=== PATIENT | female | born 1985 | race African-American/Black ===

== ENCOUNTER 2018-06-24 05:18 | Emergency (ER) | payer OTHER ==
[~2018-06-24] VITALS: Ht 170.2 cm; Wt 117.0 kg
[2018-06-24] MEDS ORDERED: IBUPROFEN 600MG TABLET PO ONE (07:00)
[2018-06-24 07:46] VITALS: BP 128/71
== END 2018-06-24 07:49 | disposition home or self-care (01) ==
LOC: ER 05:18
DX: H92.02 Otalgia, left ear (principal); F12.10 Cannabis abuse, uncomplicated
CPT/HCPCS: 99283; Z7610

== ENCOUNTER 2018-12-13 13:49 | Emergency (ER) | payer MEDICAID, OTHER ==
[~2018-12-13] VITALS: Ht 167.6 cm; Wt 80.0 kg
[2018-12-13 14:48] LABS: BASOPHILS % 1.4 % (0.0-2.0); EOSINOPHILS % 1.9 % (0.0-5.0); HEMATOCRIT. 38.9 % (36.0-48.0); HEMOGLOBIN. 12.5 g/dL (12.0-16.0); LYMPHOCYTES % 34.4 % (20.0-50.0); MEAN CORPUSCULAR VOLUME 74.7 fL (81.0-99.0); MEAN PLATELET VOLUME 8.4 fl (7.4-10.4); NEUTROPHILS % 55.3 % (40.0-76.0); PLATELET 174 x1000/uL (130-400); RED BLOOD CELL COUNT 5.21 mill/uL (4.2-5.4); RED CELL DISTRIBUTION WIDTH 16.9 % (11.6-14.6)
[2018-12-13 14:56] LABS: CHLORIDE 105 mEq/L (98-107)
[2018-12-13 15:00] LABS: ETHANOL BLOOD < 10 mg/dL
[2018-12-13 15:53] LABS: CLARITY URINE CLEAR (CLEAR); COLOR URINE YELLOW (YELLOW); KETONES URINE NEGATIVE (NEGATIVE); LEUKOCYTE ESTERASE URINE NEGATIVE (NEGATIVE); NITRITE URINE NEGATIVE (NEGATIVE); OCCULT BLOOD URINE NEGATIVE (NEGATIVE); PH URINE 5.5 (4.5-8.0); PROTEIN URINE NEGATIVE (NEGATIVE); SPECIFIC GRAVITY URINE 1.028 (1.005-1.030)
[2018-12-13] MEDS ORDERED: IBUPROFEN 600MG TABLET PO STA (15:55)
[2018-12-13 16:08] LABS: *BARBITURATES SCREEN URINE NEGATIVE (NEGATIVE); *COCAINE SCREEN URINE NEGATIVE (NEGATIVE)
[2018-12-13 16:09] LABS: *BENZODIAZEPINES SCREEN URINE NEGATIVE (NEGATIVE); CANNABINOID URINE SCREEN NEGATIVE (NEGATIVE); METHADONE URINE SCREEN NEGATIVE (NEGATIVE); OPIATES URINE SCREEN NEGATIVE (NEGATIVE)
[2018-12-13 16:13] LABS: *AMPHETAMINES SCREEN URINE PRESUMTIVE POSITIVE (NEGATIVE); PHENCYCLIDINE URINE SCREEN PRESUMTIVE POSITIVE (NEGATIVE)
[2018-12-13 16:43] VITALS: BP 132/84
== END 2018-12-13 16:20 | disposition home or self-care (01) ==
LOC: ER 13:49
DX: R44.0 Auditory hallucinations (principal); R07.89 Other chest pain; F20.9 Schizophrenia, unspecified; F12.10 Cannabis abuse, uncomplicated
CPT/HCPCS: 36415; 71045; 80305; 80307; 80320; 80329; 81003; 81025; 99284; G0480

== ENCOUNTER 2019-08-05 02:37 | Emergency (ER) | payer MEDICAID, OTHER ==
[~2019-08-05] VITALS: Ht 170.2 cm; Wt 104.5 kg
[2019-08-05 04:50] LABS: BASOPHILS % 0.3 % (0.0-2.0); EOSINOPHILS % 0.1 % (0.0-5.0); HEMATOCRIT. 32.4 % (36.0-48.0); HEMOGLOBIN. 9.9 g/dL (12.0-16.0); LYMPHOCYTES % 8.5 % (20.0-50.0); MEAN CORPUSCULAR HEMOGLOBIN 21.4 pg (28.0-32.0); MEAN CORPUSCULAR VOLUME 70.1 fL (81.0-99.0); MEAN PLATELET VOLUME 8.4 fl (7.4-10.4); MONOCYTES % 6.3 % (2.0-8.0); NEUTROPHILS % 84.8 % (40.0-76.0); PLATELET 382 x1000/uL (130-400); RED BLOOD CELL COUNT 4.63 mill/uL (4.2-5.4); RED CELL DISTRIBUTION WIDTH 23.9 % (11.6-14.6)
[2019-08-05 04:54] LABS: CHLORIDE 101 mEq/L (98-107)
[2019-08-05 04:57] LABS: ETHANOL BLOOD < 10 mg/dL
[2019-08-05 05:24] LABS: PLATELET ESTIMATE NORMAL
[2019-08-05] MEDS ORDERED: IBUPROFEN 600MG TABLET PO STA (05:31)
[2019-08-05 05:41] LABS: CLARITY URINE CLOUDY (CLEAR); COLOR URINE DARK YELLOW (YELLOW); KETONES URINE NEGATIVE (NEGATIVE); LEUKOCYTE ESTERASE URINE NEGATIVE (NEGATIVE); NITRITE URINE NEGATIVE (NEGATIVE); OCCULT BLOOD URINE NEGATIVE (NEGATIVE); PROTEIN URINE TRACE (NEGATIVE); SPECIFIC GRAVITY URINE 1.034 (1.005-1.030)
[2019-08-05 05:56] LABS: *BARBITURATES SCREEN URINE NEGATIVE (NEGATIVE); *BENZODIAZEPINES SCREEN URINE NEGATIVE (NEGATIVE); *COCAINE SCREEN URINE NEGATIVE (NEGATIVE); METHADONE URINE SCREEN NEGATIVE (NEGATIVE); OPIATES URINE SCREEN NEGATIVE (NEGATIVE)
[2019-08-05 05:57] LABS: PHENCYCLIDINE URINE SCREEN NEGATIVE (NEGATIVE)
[2019-08-05 06:10] LABS: *AMPHETAMINES SCREEN URINE PRESUMTIVE POSITIVE (NEGATIVE); CANNABINOID URINE SCREEN PRESUMTIVE POSITIVE (NEGATIVE)
[2019-08-05 10:00] VITALS: BP 102/72
== END 2019-08-05 10:45 | disposition home or self-care (01) ==
LOC: ER 02:37
DX: R10.9 Unspecified abdominal pain (principal); F15.10 Other stimulant abuse, uncomplicated; F16.10 Hallucinogen abuse, uncomplicated; F12.10 Cannabis abuse, uncomplicated; Z75.1 Person awaiting admission to adequate facility elsewhere; Z59.0 Homelessness
CPT/HCPCS: 36415; 80048; 80305; 80307; 80320; 80329; 81003; 81025; 85025; 99283; G0480

== ENCOUNTER 2019-08-25 16:22 | Inpatient (IN) | payer MEDICAID, OTHER ==
[~2019-08-25] VITALS: Ht 170.2 cm; Wt 98.5 kg
[2019-08-25] MEDS ORDERED: DIPH25CA83 PO (16:28)
[2019-08-25 18:42] LABS: CHLORIDE 98 mEq/L (98-107)
[2019-08-25 18:44] LABS: MEAN CORPUSCULAR HEMOGLOBIN 20.7 pg (28.0-32.0); MEAN CORPUSCULAR VOLUME 64.2 fL (81.0-99.0); MEAN PLATELET VOLUME 9.3 fl (7.4-10.4); PLATELET 244 x1000/uL (130-400); RED BLOOD CELL COUNT 3.27 mill/uL (4.2-5.4); RED CELL DISTRIBUTION WIDTH 23.8 % (11.6-14.6)
[2019-08-25 18:46] LABS: ETHANOL BLOOD < 10 mg/dL
[2019-08-25 18:48] LABS: CLARITY URINE CLOUDY (CLEAR); COLOR URINE DARK YELLOW (YELLOW); KETONES URINE TRACE (NEGATIVE); LEUKOCYTE ESTERASE URINE 2+ (NEGATIVE); NITRITE URINE NEGATIVE (NEGATIVE); OCCULT BLOOD URINE NEGATIVE (NEGATIVE); PH URINE 5.5 (4.5-8.0); PROTEIN URINE 2+ (NEGATIVE)
[2019-08-25 18:50] LABS: HEMOGLOBIN. 6.8 g/dL (12.0-16.0)
[2019-08-25 19:06] LABS: *BARBITURATES SCREEN URINE NEGATIVE (NEGATIVE)
[2019-08-25 19:07] LABS: *BENZODIAZEPINES SCREEN URINE NEGATIVE (NEGATIVE); *COCAINE SCREEN URINE NEGATIVE (NEGATIVE); CANNABINOID URINE SCREEN NEGATIVE (NEGATIVE); METHADONE URINE SCREEN NEGATIVE (NEGATIVE); OPIATES URINE SCREEN NEGATIVE (NEGATIVE); PHENCYCLIDINE URINE SCREEN NEGATIVE (NEGATIVE)
[2019-08-25 19:11] LABS: *AMPHETAMINES SCREEN URINE PRESUMTIVE POSITIVE (NEGATIVE)
[2019-08-25] MEDS ORDERED: AZITHROMYCIN 500 MG in DEXT 5% WATER 250 ML IV SCH (20:00)
[2019-08-25] MEDS ORDERED: POTASSIUM CHLORIDE 20MEQ TABLET SR PO NR (20:00)
[2019-08-25] MEDS ORDERED: CEFTRIAXONE 1 G PREMIX 50 ML IV ONE (21:00)
[2019-08-25 21:01] LABS: PLATELET ESTIMATE NORMAL
[2019-08-25] MEDS ORDERED: ACETAMINOPHEN 325MG TABLET PO PRN (23:45)
[2019-08-26 03:30] VITALS: BP 110/63
[2019-08-26] MEDS ORDERED: ONDANSETRON HCL 4MG/2ML INJ IV PRN (04:00)
[2019-08-26 08:00] VITALS: BP 105/61
[2019-08-26] MEDS: MORPHINE SULFATE 2 MG/ML CPJ (NOT FOR IM USE) IV PRN ×2 (08:06→17:48)
[2019-08-26 09:42] LABS: INR 1.3; PROTHROMBIN TIME 14.1 sec (9.6-11.0)
[2019-08-26 09:44] LABS: HEMATOCRIT. 23.5 % (36.0-48.0); HEMOGLOBIN. 7.5 g/dL (12.0-16.0); MEAN CORPUSCULAR HEMOGLOBIN 21.3 pg (28.0-32.0); MEAN CORPUSCULAR VOLUME 67.4 fL (81.0-99.0); MEAN PLATELET VOLUME 9.2 fl (7.4-10.4); RED BLOOD CELL COUNT 3.49 mill/uL (4.2-5.4); RED CELL DISTRIBUTION WIDTH 24.2 % (11.6-14.6)
[2019-08-26 09:52] LABS: PLATELET 204 x1000/uL (130-400)
[2019-08-26 11:29] LABS: ATYPICAL LYMPHOCYTES 1; PLATELET ESTIMATE NORMAL
[2019-08-26 16:00] VITALS: BP 123/64
[2019-08-26] MEDS ORDERED: VANCOMYCIN 2,000 MG in DEXT 5% WATER 500 ML IV NR (16:00)
[2019-08-26] MEDS: AZITHROMYCIN 500 MG TABLET PO SCH (17:48)
[2019-08-26 20:00] VITALS: BP 98/46
[2019-08-26] MEDS ORDERED: LORAZEPAM 2MG/ML CPJ IV PRN (20:30)
[2019-08-26] MEDS: SODIUM HYPOCHLORITE 0.125% 473ML SOLUTION TOP SCH (20:32)
[2019-08-26] MEDS ORDERED: CEFTRIAXONE 1 G PREMIX 50 ML IV SCH ×2 (21:00)
[2019-08-26] MEDS ORDERED: SODIUM CHLORIDE 0.9% 500 ML IV NR (21:19)
[2019-08-26] MEDS: ACETAMINOPHEN 325MG TABLET PO PRN (21:59)
[2019-08-26] MEDS ORDERED: VANCOMYCIN 1250MG in DEXTROSE 5% WATER 250ML IV SCH (22:00)
[2019-08-26 22:15] LABS: TOTAL IRON BINDING CAPACITY 139 ug/dL (250-450)
[2019-08-26 22:51] LABS: HEPATITIS B SURFACE ANTIGEN NEGATIVE
[2019-08-26] MEDS: DEXT 5%/0.45% NACL 1000ML 1,000 ML IV SCH (22:51)
[2019-08-26 23:21] LABS: HEPATITIS A AB IGM NEGATIVE (NEGATIVE)
[2019-08-27] VITALS: BP 97/56
[2019-08-27] MEDS: VANCOMYCIN 1 G PREMIX 200 ML IV SCH ×4 (00:01→15:51)
[2019-08-27 04:00] VITALS: BP 100/59
[2019-08-27 08:00] VITALS: BP 104/48
[2019-08-27] MEDS: DEXT 5%/0.45% NACL 1000ML 1,000 ML IV SCH ×3 (08:30→17:21)
[2019-08-27] MEDS: SODIUM HYPOCHLORITE 0.125% 473ML SOLUTION TOP SCH (09:34)
[2019-08-27 12:12] VITALS: BP 104/54
[2019-08-27 16:00] VITALS: BP 101/52
[2019-08-27] MEDS: AZITHROMYCIN 500 MG TABLET PO SCH (16:29)
[2019-08-27 19:50] LABS: BASOPHILS % 0.4 % (0.0-2.0); EOSINOPHILS % 0.2 % (0.0-5.0); HEMATOCRIT. 22.9 % (36.0-48.0); HEMOGLOBIN. 7.3 g/dL (12.0-16.0); MEAN CORPUSCULAR HEMOGLOBIN 21.4 pg (28.0-32.0); MEAN CORPUSCULAR VOLUME 67.6 fL (81.0-99.0); MEAN PLATELET VOLUME 9.5 fl (7.4-10.4); MONOCYTES % 4.4 % (2.0-8.0); PLATELET 217 x1000/uL (130-400); RED BLOOD CELL COUNT 3.39 mill/uL (4.2-5.4); RED CELL DISTRIBUTION WIDTH 24.6 % (11.6-14.6)
[2019-08-27 19:55] LABS: CHLORIDE 101 mEq/L (98-107)
[2019-08-27 20:00] VITALS: BP 103/59
[2019-08-27 21:10] LABS: PLATELET ESTIMATE NORMAL
[2019-08-27] MEDS: AMOXICILLIN/POTASSIUM CLAVULANATE 875/125MG TAB PO SCH (21:40)
[2019-08-27] MEDS: SULFAMETHOXAZOLE/TRIMETHOPRIM 800/160MG TABLET PO SCH (21:40)
[2019-08-27] MEDS ORDERED: IRON SUCROSE COMPLEX 100 MG/5 ML ML IV SCH (23:30)
[2019-08-28] VITALS (12 sets, daily range): BP systolic 92–115; BP diastolic 44–70
[2019-08-28] MEDS: DEXT 5%/0.45% NACL 1000ML 1,000 ML IV SCH ×2 (03:53→14:30)
[2019-08-28 06:46] LABS: HEMOGLOBIN. 8.3 g/dL (12.0-16.0); MEAN CORPUSCULAR HEMOGLOBIN 22.4 pg (28.0-32.0); MEAN PLATELET VOLUME 9.5 fl (7.4-10.4); PLATELET 225 x1000/uL (130-400); RED BLOOD CELL COUNT 3.72 mill/uL (4.2-5.4); RED CELL DISTRIBUTION WIDTH 26.3 % (11.6-14.6)
[2019-08-28 07:23] LABS: D-DIMER 9.46 mg/L FEU (<0.50); INR 1.1; PROTHROMBIN TIME 12.3 sec (9.6-11.0)
[2019-08-28] MEDS: SODIUM HYPOCHLORITE 0.125% 473ML SOLUTION TOP SCH (09:00)
[2019-08-28] MEDS: AMOXICILLIN/POTASSIUM CLAVULANATE 875/125MG TAB PO SCH ×2 (09:29→19:55)
[2019-08-28] MEDS: SULFAMETHOXAZOLE/TRIMETHOPRIM 800/160MG TABLET PO SCH ×2 (09:29→19:55)
[2019-08-28] MEDS: IRON SUCROSE COMPLEX 100 MG/5 ML ML IV SCH (09:29)
[2019-08-28] MEDS ORDERED: POTASSIUM CHLORIDE 20MEQ TABLET SR PO NR (10:15)
[2019-08-28 13:06] LABS: HIV SCREEN 4G Non Reactive (Non Reactive)
[2019-08-28 13:38] LABS: PLATELET ESTIMATE NORMAL
[2019-08-28] MEDS: ACETAMINOPHEN 325MG TABLET PO PRN (16:06)
[2019-08-28] MEDS ORDERED: GUAIFENESIN-DM 200MG-20MG/10ML UDC PO PRN (22:45)
[2019-08-28] MEDS: LINEZOLID 600MG TABLET PO SCH (22:52)
[2019-08-29] MEDS: ACETAMINOPHEN 325MG TABLET PO PRN (00:12)
[2019-08-29] MEDS: DEXT 5%/0.45% NACL 1000ML 1,000 ML IV SCH ×2 (00:30→11:02)
[2019-08-29 00:39] VITALS: BP 106/52
[2019-08-29 04:00] VITALS: BP 108/59
[2019-08-29 06:12] LABS: CHLORIDE 108 mEq/L (98-107)
[2019-08-29 07:19] LABS: BASOPHILS % 0.1 % (0.0-2.0); EOSINOPHILS % 0.9 % (0.0-5.0); HEMATOCRIT. 24.3 % (36.0-48.0); HEMOGLOBIN. 7.7 g/dL (12.0-16.0); LYMPHOCYTES % 11.8 % (20.0-50.0); MEAN CORPUSCULAR HEMOGLOBIN 22.5 pg (28.0-32.0); MEAN CORPUSCULAR VOLUME 71.2 fL (81.0-99.0); MEAN PLATELET VOLUME 9.7 fl (7.4-10.4); MONOCYTES % 7.1 % (2.0-8.0); NEUTROPHILS % 80.1 % (40.0-76.0); PLATELET 243 x1000/uL (130-400); RED BLOOD CELL COUNT 3.41 mill/uL (4.2-5.4); RED CELL DISTRIBUTION WIDTH 25.5 % (11.6-14.6)
[2019-08-29 08:00] VITALS: BP 113/70
[2019-08-29 08:14] VITALS: BP 113/70
[2019-08-29] MEDS: SODIUM HYPOCHLORITE 0.125% 473ML SOLUTION TOP SCH (09:00)
[2019-08-29] MEDS: AMOXICILLIN/POTASSIUM CLAVULANATE 875/125MG TAB PO SCH ×2 (09:40→20:55)
[2019-08-29] MEDS: LINEZOLID 600MG TABLET PO SCH ×2 (09:40→20:55)
[2019-08-29] MEDS: IRON SUCROSE COMPLEX 100 MG/5 ML ML IV SCH (11:01)
[2019-08-29] MEDS ORDERED: AMOX1TAB16 PO (11:45)
[2019-08-29] MEDS ORDERED: LINE600T11 PO (11:45)
[2019-08-29] MEDS ORDERED: HYDR-4009 MT (11:45)
[2019-08-29] MEDS ORDERED: HYDROCODONE/ACETAMINOPHEN 10/325MG TABLET PO PRN (14:30)
[2019-08-29 20:00] VITALS: BP 110/67
[2019-08-30] VITALS: BP 124/74
[2019-08-30 04:00] VITALS: BP 129/78
[2019-08-30 08:00] VITALS: BP 107/71
[2019-08-30] MEDS: LINEZOLID 600MG TABLET PO SCH (08:44)
[2019-08-30] MEDS: IRON SUCROSE COMPLEX 100 MG/5 ML ML IV SCH (08:44)
[2019-08-30] MEDS: AMOXICILLIN/POTASSIUM CLAVULANATE 875/125MG TAB PO SCH (08:44)
[2019-08-30] MEDS: SODIUM HYPOCHLORITE 0.125% 473ML SOLUTION TOP SCH (09:00)
[2019-08-30 12:00] VITALS: BP 105/69
== END 2019-08-30 11:50 | disposition left against medical advice (07) | DRG 720 ==
LOC: ER 16:22 → 7WST 17:36 → EDBEDREQTM 20:21 → EDBEDREQ 20:21 → ER 08-26 02:37 → 7WST 08-26 12:16 → 6WST 08-27 23:50
PROVIDERS: ADMIT Internal Medicine; ATTEND Internal Medicine
PROC: 30233N1 Transfusion of Nonautologous Red Blood Cells into Peripheral Vein, Percutaneous Approach (ICD-10-PCS; principal; 2019-08-25)
DX: A41.9 Sepsis, unspecified organism (principal); J96.00 Acute respiratory failure, unspecified whether with hypoxia or hypercapnia; E43 Unspecified severe protein-calorie malnutrition; J68.0 Bronchitis and pneumonitis due to chemicals, gases, fumes and vapors; J18.9 Pneumonia, unspecified organism; E87.1 Hypo-osmolality and hyponatremia; K56.7 Ileus, unspecified; L89.899 Pressure ulcer of other site, unspecified stage; D64.9 Anemia, unspecified; E11.9 Type 2 diabetes mellitus without complications; E87.6 Hypokalemia; I10 Essential (primary) hypertension; M79.605 Pain in left leg; F15.10 Other stimulant abuse, uncomplicated; Z53.29 Procedure and treatment not carried out because of patient's decision for other reasons; Z20.828 Contact with and (suspected) exposure to other viral communicable diseases; F99 Mental disorder, not otherwise specified; N39.0 Urinary tract infection, site not specified; Z59.0 Homelessness; Z79.899 Other long term (current) drug therapy; Z71.51 Drug abuse counseling and surveillance of drug abuser; Z68.34 Body mass index [BMI] 34.0-34.9, adult; Z91.19 Patient's noncompliance with other medical treatment and regimen
CPT/HCPCS: 36415; 71045; 74176; 80048; 80053; 80305; 80320; 81003; 82728; 82962; 83540; 83550; 83615; 83880; 85025; 85049; 85379; 85384; 86140; 86705; 86709; 86803; 86850; 86900; 86920; 87340; 87389; 93005; 93970; 99291; J0456; J0696; J2270; J3370; J7060; P9016; G0480; U0003-CS